=== PATIENT | male | born 1990 | race Caucasian/White ===

== ENCOUNTER 2019-11-01 10:50 | Emergency (ER) | payer OTHER ==
[2019-11-01 11:06] VITALS: BP 132/88
--- NOTE | 2019-11-01 12:11 | XRAY Report ---
Reason: pain Procedure Date: 11/01/2019 Accession Number: [id number] / [id number] Procedure: XR - Forearm RT CPT Code: Final Report FULL RESULT: EXAM: RIGHT FOREARM RADIOGRAPHY, 2 VIEWS EXAM DATE: 11/01/2019 11:30 AM. CLINICAL HISTORY: 29-year-old male with right forearm pain. COMPARISON: None. TECHNIQUE: Frontal and lateral views. FINDINGS: Bones: Normal. No fractures or bone lesions. Joints: Normal. No effusions or subluxations in the visualized wrist or elbow joints. Soft Tissues: Normal. No soft tissue swelling. IMPRESSION: Normal examination. No posttraumatic or other demonstrated cause for pain. RADIA
--- NOTE | 2019-11-01 12:31 | ED Physician Documentation ---
PD HPI UPPER EXT INJURY - Stated complaint Stated Complaint: R ARM INJURY - Chief complaint Chief Complaint: Ext Problem - History obtained from History obtained from: Patient - History of Present Illness Location: Right, Wrist Where injury occurred: Work Timing - onset: Yesterday Timing - duration: Days (2) Timing - details: Abrupt onset (felt onset of some pain in right forearm with normal work activity (hand tools); no direct impact injury. Noted some redness and tenderness, also pain with ROM. Today, having pain with even simple lifting and ROM of the wrist.), Still present Worsened by: Moving, Palpating Review of Systems Constitutional: denies: Fever, Chills Throat: denies: Dental pain / toothache Skin: denies: Rash, Lesions Musculoskeletal: reports: Extremity pain Neurologic: denies: Focal weakness, Numbness PD PAST MEDICAL HISTORY - Past Medical History Past Medical History: No - Past Surgical History Past Surgical History: Yes Ortho: ACL reconstruction - Present Medications Home Medications: Ambulatory Orders Medication Instructions Recorded Confirmed Naproxen 500 mg PO BID #20 tablet 11/01/19 - Allergies Allergies/Adverse Reactions: Allergies Allergy/AdvReac Type Severity Reaction Status Date / Time amoxicillin [From Augmentin] Allergy Hives Verified 11/01/19 10:58 clavulanic acid Allergy Hives Verified 11/01/19 10:58 [From Augmentin] - Social History Does the pt smoke?: No Smoking Status: Never smoker Does the pt drink ETOH?: Yes ETOH Use: Beer Does the pt have substance abuse?: No - Immunizations Immunizations: TDAP current <10years PD ED PE NORMAL - Vitals Vital signs reviewed: Yes - General General: Alert and oriented X 3, No acute distress, Well developed/nourished - Derm Derm: Normal color, Warm and dry - Extremities Extremities: Other (right forearm on radial side lower aspect with area of redness and tenderness of the skin. There is small area about 2 cm of linear firmness c/w phlebitis. Also crepitant feeling in distal forearm with ROM of the wrist but not the thumb, c/w tendonitis. No bony deformity.) Results - Vitals Vitals: Vital Signs - 24 hr 11/01/19 10:54 Temperature 37.1 C Heart Rate 62 Respiratory 17 Rate Blood Pressure 132/88 H O2 Saturation 100 Oxygen O2 Source Room air - Rads (name of study) right forearm Radiology: Prelim report reviewed (no fractures), See rad report PD MEDICAL DECISION MAKING - ED course Complexity details: considered differential (has crepitance with ROM of the wrist, c/w tendonitis. Also with superficial linear tenderness and redness c/w phlebitis. ), d/w patient Departure - Departure Disposition: 01 Home, Self Care Clinical Impression: Forearm tendonitis, Phlebitis of forearm Condition: Stable Record reviewed to determine appropriate education?: Yes Instructions: ED Phlebitis Superficial, Tendonitis and Tenosynovitis Prescriptions: Naproxen 500 mg PO BID #20 tablet Comments: Use the wrist brace to reduce motion of forearm tendons. Take anti- inflammatories regularly for 7-10 days. Add Tylenol as needed for pains. Limit use of the wrist/arm as needed for comfort. Recheck if not improved over the next days to a week. Warm towels a few times daily to the area to help with the phlebitis. Discharge Date/Time: 11/01/19 13:08
[2019-11-01] MEDS ORDERED: IBUPROFEN 800 MG TABLET PO STA (12:44)
[2019-11-01] MEDS ORDERED: CHERRY SYRUP 10 ML UDC PO ONE (12:44)
[2019-11-01] MEDS ORDERED: DEXAMETHASONE 10 MG/ML VIAL PO STA (12:44)
== END 2019-11-01 13:08 | disposition home or self-care (01) ==
LOC: ED 10:50
DX: M77.9 Enthesopathy, unspecified (principal); I80.8 Phlebitis and thrombophlebitis of other sites
CPT/HCPCS: 1040M; 73090; 99283; A9270

== ENCOUNTER 2019-11-10 16:37 | Emergency (ER) | payer OTHER ==
--- NOTE | 2019-11-10 17:25 | ED Physician Documentation ---
PD HPI UPPER EXT INJURY - Stated complaint Stated Complaint: LT HAND VS SAW - Chief complaint Chief Complaint: Laceration - History obtained from History obtained from: Patient - History of Present Illness Location: Left, Hand, Finger (thumb tip) Type of injury: Laceration (He was using a skill saw to cut up some logs and had a kickback of it in the blade caught the side of the tip of the thumb as it kicked back and cut into the thenar webspace between the thumb and index finger. It bled briskly initially and he put direct pressure. He denies numbness or weakness.) Where injury occurred: Work Timing - onset: Today Timing - details: Abrupt onset Worsened by: Palpating. No: Moving Associated symptoms: No: Weakness, Numbness Similar symptoms before: Has not had sx before Recently seen: Emergency Dept (Recently seen for right forearm tendinitis which has improved completely to normal function) Review of Systems Skin: reports: Laceration (s) Neurologic: denies: Focal weakness, Numbness, Near syncope PD PAST MEDICAL HISTORY - Past Medical History Past Medical History: No - Past Surgical History Past Surgical History: Yes Ortho: ACL reconstruction - Present Medications Home Medications: Ambulatory Orders Medication Instructions Recorded Confirmed Naproxen 500 mg PO BID #20 tablet 11/01/19 Hydrocodone/Acetaminophen 1 each PO TID #14 tablet 11/10/19 [Hydrocodon-Acetaminophen 5-325] - Allergies Allergies/Adverse Reactions: Allergies Allergy/AdvReac Type Severity Reaction Status Date / Time amoxicillin [From Augmentin] Allergy Hives Verified 11/10/19 16:53 clavulanic acid Allergy Hives Verified 11/10/19 16:53 [From Augmentin] - Social History Does the pt smoke?: No Smoking Status: Never smoker Does the pt drink ETOH?: Yes Does the pt have substance abuse?: No - Immunizations Immunizations: TDAP current <10years PD ED PE NORMAL - Vitals Vital signs reviewed: Yes - General General: Alert and oriented X 3, No acute distress, Well developed/nourished - Derm Derm: Normal color, Warm and dry - Extremities Extremities: Other (The left thumb tip shows an intact nailbed and nail with some 3 to 4 mm sized partial-thickness avulsions to the radial side and proximal portion of the bed. There are no foreign bodies noted. There is no bleeding and it appears clean. The palmar thenar web space of the left hand shows a 3 cm laceration which extends to the fatty tissue. The edges are slightly irregular. There is no foreign body noted. There is minimal bleeding. There is no involvement of deep structures. Motor exam and sensory of the thumb and index finger are normal.) - Neuro Neuro: Alert and oriented X 3, No motor deficit, No sensory deficit, Normal speech Results - Vitals Vitals: Vital Signs - 24 hr 11/10/19 11/10/19 16:46 18:31 Temperature 36.8 C 36.7 C Heart Rate 53 L 75 Respiratory 18 18 Rate Blood Pressure 136/99 H 140/70 H O2 Saturation 65 L 97 Oxygen O2 Source Room air Procedures - Laceration (location) left thenar hand Length in cm: 3 Wound type: Linear, Into subcut fat, Clean. No: Into muscle Neurovascular status: Sensory intact, Motor intact, Vascular intact Tendon involvement: No: Tendon Injury Anesthesia: Lidocaine 1% with epi Wound Preparation: Wound explored, To the base, Wound edges modified. No: FB identified Skin layer closure: Nylon, Running, Size #-0 - enter number (4) Other: No complications, Neurovascular intact, Dressing applied, Tetanus booster given Complexity: Simple PD MEDICAL DECISION MAKING - ED course Complexity details: considered differential (The thumb lacerations are more partial-thickness small avulsions and no sutures are needed. No foreign bodies. His injury around the nailbed but no involvement of the nailbed itself or the nail. The thenar laceration extends into the fatty tissue but no deep structures. There are no foreign bodies noted. It is sutured with good closure.), d/w patient Departure - Departure Disposition: 01 Home, Self Care Clinical Impression: Hand laceration Qualifiers: Encounter type: initial encounter Foreign body presence: without foreign body Laterality: left Qualified Code(s): S61.412A - Laceration without foreign body of left hand, initial encounter Thumb laceration Qualifiers: Encounter type: initial encounter Damage to nail status: with damage Foreign body presence: without foreign body Laterality: left Qualified Code(s): S61.112A - Laceration without foreign body of left thumb with damage to nail, initial encounter Condition: Stable Record reviewed to determine appropriate education?: Yes Instructions: ED Laceration Hand Prescriptions: Hydrocodone/Acetaminophen [Hydrocodon-Acetaminophen 5-325] 1 each PO TID #14 tablet Comments: Ibuprofen or naproxen 2-3 times a day regularly for the next several days. Add Tylenol every 4-6 hours if needed for pains. It is okay to wash and shower. Clean off the wound twice a day with soap and water, or peroxide and water. Apply some antibiotic ointment to it to keep it moist. Also to watch for signs of infection such as purulence, redness or increasing pain. Return to your primary care or the ER at the specified time for suture removal. Suture removal 8 to 10 days. Activity as tolerated with heavy use of the hand until the stitches are out. Keep the thumb bandaged to protect it during the day when working with it. He can have it uncovered part of the time. Discharge Date/Time: 11/10/19 18:32
[2019-11-10] MEDS ORDERED: IBUPROFEN 800 MG TABLET PO STA (17:52)
[2019-11-10] MEDS ORDERED: TETANUS/DIPHTHERIA/PERTUSSIS 0.5 ML SYRINGE IM ONE (17:52)
[2019-11-10] MEDS ORDERED: BACITRACIN ZINC OINT 1 PACKET TOP STA (18:14)
[2019-11-10] MEDS ORDERED: HYDROcod/ACETAM 5/325 MG TABLET PO STA (18:14)
[2019-11-10 18:32] VITALS: BP 140/70
== END 2019-11-10 18:32 | disposition home or self-care (01) ==
LOC: ED 16:37
DX: S61.412A Laceration without foreign body of left hand, initial encounter (principal); S61.012A Laceration without foreign body of left thumb without damage to nail, initial encounter; W31.2XXA Contact with powered woodworking and forming machines, initial encounter; Y93.89 Activity, other specified; Y99.0 Civilian activity done for income or pay; Z23 Encounter for immunization
CPT/HCPCS: 12002; 90471; 90715; 99283; A9270; 1040M

== ENCOUNTER 2022-12-26 09:17 | Outpatient (CLI) | payer OTHER ==
[2022-12-26 18:57] LABS: BASOPHILS # (AUTO) 0.1 10^3/uL (0.0-0.1); EOSINOPHILS # (AUTO) 0.1 10^3/uL (0.0-0.7); HCT - HEMATOCRIT 47.9 % (42.0-52.0); HGB - HEMOGLOBIN 16.2 g/dL (14.0-18.0); LYMPHOCYTES # (AUTO) 1.8 10^3/uL (1.5-3.5); LYMPHOCYTES % (AUTO) 34.2 %; MEAN CORPUSCULAR HEMOGLOBIN 29.3 pg (27.0-31.0); MEAN CORPUSCULAR HGB CONC 33.8 g/dL (32.0-36.0); MEAN CORPUSCULAR VOLUME 86.8 fL (80.0-94.0); MEAN PLATELET VOLUME 10.6 fL (7.4-11.4); MONOCYTES # (AUTO) 0.4 10^3/uL (0.0-1.0); MONOCYTES % (AUTO) 7.5 %; NEUTROPHILS # (AUTO) 2.9 10^3/uL (1.5-6.6); NEUTROPHILS % (AUTO) 56.1 %; PLT - PLATELET COUNT 182 10^3/uL (130-450); RED BLOOD COUNT 5.52 10^6/uL (4.70-6.10); WHITE BLOOD COUNT 5.2 x10^3/uL (4.8-10.8)
[2022-12-26 19:17] LABS: ALBUMIN 4.7 g/dL (3.2-5.5); ALBUMIN/GLOBULIN RATIO 1.7 (1.0-2.2); BILIRUBIN,TOTAL 0.5 mg/dL (0.2-1.0); CALCIUM 9.1 mg/dL (8.5-10.3); CREATININE 1.1 mg/dL (0.6-1.2); POTASSIUM 4.5 mmol/L (3.5-5.0); TOTAL PROTEIN 7.5 g/dL (6.7-8.2)
[2022-12-26 19:32] LABS: THYROID STIMULATING HORMONE 1.66 uIU/mL (0.34-5.60)
[2022-12-26 19:34] LABS: FREE T4 (FREE THYROXINE) 0.84 ng/dL (0.58-1.64)
== END 2022-12-26 09:18 | disposition home or self-care (01) ==
LOC: LAB.N 09:17
PROVIDERS: ATTEND Physician Assistant
DX: R53.83 Other fatigue (principal); R63.5 Abnormal weight gain
CPT/HCPCS: 36415; 80053; 84403; 84439; 84443; 85025

== ENCOUNTER 2023-01-02 09:26 | Outpatient (CLI) | payer OTHER ==
[2023-01-06 13:10] LABS: FREE TESTOSTERONE(DIRECT) 21.4 pg/mL (8.7-25.1)
== END 2023-01-02 09:27 | disposition home or self-care (01) ==
LOC: LAB.N 09:26
PROVIDERS: ATTEND Family Medicine
DX: R68.82 Decreased libido (principal)
CPT/HCPCS: 36415; 84402; 84403

== ENCOUNTER 2023-07-23 15:23 | Outpatient (CLI) | payer OTHER ==
--- NOTE | 2023-07-23 16:27 | Sleep Patient Instructions ---
Sleep Center Visit Summary - Patient Visit Information Reason for Visit: Initial consult for evaluation of sleep disordered breathing and other sleep issues. - Patient Instructions Instructions Attached: Sleep Study Home Monitor Additional Instructions: You will be completing a sleep study, either an in-lab polysomnography (PSG) or home sleep study (HST). You will follow-up in the sleep care office after the sleep study is completed to hear the results and talk about therapy, if needed. You will be called by our office staff to schedule this appointment, but you may contact us with any questions. - Clinic Information Contact: [facility] [address] [place] [address] [email or web address] T: [phone]
--- NOTE | 2023-07-23 16:32 | SLEEP CARE CONSULTATION ---
Information from patient questionnaire entered by Lupis Thomas. I have reviewed and concur with the information entered by Lupis Thomas. This document represents the service I personally performed and the decisions made by me, Holly Yan ARNP. History of Present Illness Service Date and Time: 07/23/2023 1523 Reason for Visit: New patient Chief Complaint: reports: Unrefreshed sleep, Snoring, Excessive daytime sleepiness, Observed pauses in breathing, Fatigue Date of Onset: FATIGUE 3-5YRS, SNORING AND PAUSES IN BREATHING LONG I CAN REMEMBER Usual bedtime: 10-1130PM Time it takes to fall asleep: 10-15MIN Snores at night: Yes Observed to quit breathing while asleep: Yes Sleeps alone due to snoring: No Number of times waking at night: 0-2 Reasons for waking at night: reports: Choking, Snoring, Bathroom, Other (NOISE) Toss, Turn, or Twitch while sleeping: Yes Recalls having dreams: Yes Usually gets out of bed at: 6AM; weekends 0900 Feels refreshed in the morning: No Morning headache: No Sleepy or fatigued during the day: Yes Ever fallen asleep while driving: No Takes day naps: No Dreams during day naps: No Prior sleep studies: No Additional HPI information: I had the pleasure of seeing ROMY CAGE today regarding the possibility of him having a sleep disorder. His current complaints are unrefreshed sleep, snoring, excessive daytime sleepiness, observed pauses in breathing and fatigue. 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 His is complaining of snoring, pauses in breathing and "making weird sounds" when sleeping. She is now waking him up to turn over and getting frustrated with the night noise. He does not waking up feeling refreshed and cannot remember the last time he did. He is tired during the day but does not take any naps. 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 Patient is and lives in [place]. Have you smoked in the past 12 months: No Alcohol use: Yes Alcohol amount and frequency: 2-3 BEERS 3 NIGHTS A WEEK Caffeine use: Yes Caffeine amount and frequency: 1-2 QD Family History Family history of sleep disordered breathing: Yes Family Hx Sleep Apnea: Father: Snoring, Grandparent: Snoring, Other: Sleep apnea - Treated (2 maternal uncles) Allergies and Home Medications Known drug allergies: Yes (AUGMENTIN) Drug allergies reviewed: Yes Home medication list reviewed: Yes (no daily medications) Allergy and home medication list: Allergies amoxicillin [From Augmentin] Allergy (Verified 07/22/23 15:05) Hives clavulanic acid [From Augmentin] Allergy (Verified 07/22/23 15:05) Hives Review of Systems Weight gain over past 5 years: 64, intentional for [employer] Cardiovascular: denies: high blood pressure Gastrointestinal: denies: heartburn Neurological: denies: headaches Psychiatric: denies: anxiety, depression Ear/Nose/Throat: reports: nasal congestion, sinus problems, wisdom teeth removed. denies: tonsillectomy Endocrine: reports: sluggishness, too hot or cold Physical Exam Vital signs obtained and entered by: Holly Ronquillo NP Blood Pressure: 140/83 Cuff size: wrist (right) Heart Rate: 71 O2 Saturation: 96 Height: 6 ft 5 in Weight: 311 lb 6.4 oz Body Mass Index: 36.9 BMI Classification: Obese Neck circumference: 17.5 (inches) Nostrils: patent to airflow Mouth and throat: narrow oropharynx Soft palate: long Hard palate: normal Uvula: normal Uvula visualization: 25% Mallampati Class III Tongue: enlarged in size with teeth mendez on lateral edges Tonsils: 2+ Neck: normal w/o lymphadenopathy or thyromegaly Heart: regular rate and rhythm Lungs: clear bilaterally Impression and Plan 1. Suspected Obstructive Sleep Apnea-Hypopnea Syndrome, as suggested by a history of loud and irregular snoring, observed cessation of breath while asleep, gasping or choking in sleep, unrefreshed sleep, and excessive daytime sleepiness. Narrow oropharynx and obesity are common predisposing factors for obstructive sleep apnea-hypopnea syndrome. I recommend proceeding to polysomnography to confirm the diagnosis and to assess severity. If the patient has significant sleep disordered breathing, a manual CPAP titration study will also be performed to find the optimal treatment pressure. I informed the patient of what the sleep studies involve and after some discussion, obtained agreement to proceed. The pathophysiology of obstructive sleep apnea-hypopnea syndrome was discussed with the patient and health risks of cardiovascular and cerebrovascular disease if not treated. Risks of drowsy driving discussed in detail and patient advised to avoid long distance driving and to assembler for puller over machine at the first sign of drowsiness. Patient agreed to plan. * Schedule polysomnography. * Avoid long distance driving or driving when feeling sleepy. * Avoid alcohol, sedative and muscle relaxant around bedtime. * Attempt to lose weight. * Review instructions provided by trained office staff on how to prepare for the sleep study. * Return for follow-up after sleep study completed. Counseling Topics: Weight loss health impact Plan: PSG Visit Type: In Office Time Spent with Patient (minutes): 31 Provider Statement: I spent 100% of the Face to Face Visit with the patient with greater than 50% spent counseling the patient and coordination of care.
[2023-07-23 16:38] VITALS: BP 140/83; O2SAT 96
== END 2023-07-23 15:24 | disposition home or self-care (01) ==
LOC: SC 15:23
PROVIDERS: ATTEND Nurse Practitioner Family
DX: G47.10 Hypersomnia, unspecified (principal); R53.83 Other fatigue; R06.83 Snoring; G47.8 Other sleep disorders; R06.81 Apnea, not elsewhere classified; E66.9 Obesity, unspecified; Z68.36 Body mass index [BMI] 36.0-36.9, adult
CPT/HCPCS: 99203; 99212

== ENCOUNTER 2023-08-04 12:27 | Outpatient (CLI) | payer OTHER | END 2023-08-04 12:28 | disposition home or self-care (01) | LOC: SC 12:27 | PROVIDERS: ATTEND Nurse Practitioner Family | DX: G47.10 Hypersomnia, unspecified (principal); E66.9 Obesity, unspecified; R06.83 Snoring; G47.8 Other sleep disorders; R06.81 Apnea, not elsewhere classified; R09.02 Hypoxemia | CPT/HCPCS: 95806 ==

== ENCOUNTER 2023-08-24 09:45 | Outpatient (CLI) | payer OTHER ==
--- NOTE | 2023-08-24 10:10 | Sleep Patient Instructions ---
Sleep Center Visit Summary - Patient Visit Information Reason for Visit: Sleep study followup - Patient Instructions Additional Instructions: Your sleep study today was negative for significant sleep disordered breathing. However, you did have elevated respiratory episodes when sleeping on your back. You should avoid sleeping on your back to control these respiratory episodes. You were found to have episodes of snoring. There are different ways to control snoring including weight loss, oral devices made by a dentist or surgical options through ENT specialist. You should not use oral devices that do not fit properly because they can affect your bite. You should also check insurance coverage of oral devices for snoring because they may not be cover well. You may obtain a referral to an ENT specialist through your primary provider. Follow-up as needed. - Clinic Information Contact: [facility] [address] [place] [address] [email or web address] T: [phone]
--- NOTE | 2023-08-24 10:13 | SLEEP CARE CONSULTATION ---
Information from patient questionnaire entered by Lupis Thomas. I have reviewed and concur with the information entered by Lupis Thomas. This document represents the service I personally performed and the decisions made by , Holly Yan ARNP. History of Present Illness Service Date and Time: 08/24/2023 0945 Initial [place] Sleepiness Scale score: 5 (07/06/23) Current [place] Sleepiness Scale score: 7 (08/24/23) Additional HPI information: ROMY CAGE returns for follow up and results of the recently performed home sleep study. The patient was informed of the following findings: No significant sleep disordered breathing with an average AHI of 3.2 and laverne oxygen saturation of 88%. I explained the pathophysiology behind obstructive sleep apnea. Patient does not have sleep apnea and was advised how weight gain could increase the risk of developing sleep apnea in the future. I strongly encouraged the patient to lose weight. Patient does not have significant sleep disordered breathing but has elevated AHI in supine position so advised positional therapy. Methods to achieve positional management therapy were discussed; such as, positioning with pillows, wearing a T-shirt with tennis balls sewn into the back or commercially available products. Patient has moderate snoring. Snoring can be reduced by weight loss. Weight loss is best achieved with diet consult. Patient instructed to contact PCP for referral. Snoring can also be treated with an oral appliance from a dentist. Advised to check insurance coverage. In addition, an ENT evaluation can be do to see if other treatment is indicated. Patient counseled not drink alcohol less than 4 hours before bedtime as it can increase snoring and apnea. Patient was cautioned about risks of drowsy driving until sleepiness symptoms resolve. Sleep Study - Results Type of Sleep Study: Home sleep study (COMPLETED 08/04/23) Prior sleep studies: No Polysomnography/Home Sleep Study results: Physician Impression: The quality of the study is good. The length of the study is adequate (> 240 minutes). Please also see the tabulated and graphic data. 1. No significant sleep disordered breathing, with an AHI of 3.2/hr and laverne SaO2 of 88%. During the study, the patient had 5 apneas (5 obstructive, 0 central, 0 mixed) and 22 hypopneas. The longest episode lasted 107.0 seconds. The few respiratory events occurred almost excl usively during supine sleep (supine AHI was 5.0 and non-supine, 1.07). 2. Hypoxemia (ICD-10 R09.02), minimal, with the lowest oxygen saturation of 88 % and 0.3 minutes with SaO2 under 90%. Baseline oxygen saturation was normal (Average oxygen saturation was 94%). Allergies and Home Medications Known drug allergies: Yes (augmentin) Drug allergies reviewed: Yes Home medication list reviewed: Yes (no changes) Allergy and home medication list: Allergies amoxicillin [From Augmentin] Allergy (Verified 08/23/23 08:59) Hives clavulanic acid [From Augmentin] Allergy (Verified 08/23/23 08:59) Hives Review of Systems Review of systems same as previous: Yes (NO CHANGE) Physical Exam Vital signs obtained and entered by: LUPIS Barlow MA Blood Pressure: 143/84 (LEFT ARM) Cuff size: regular Heart Rate: 64 O2 Saturation: 99 Height: 6 ft 5 in Weight: 312 lb 9.6 oz Body Mass Index: 37.0 BMI Classification: Obese Impression and Plan 1. Snoring but no significant sleep disordered breathing. However, he had minimally elevated supine AHI. He should avoid supine sleep. Patient advised that often weight loss will reduce snoring as well as apnea risk. An oral appliance can also be used for snoring. This would require a dental consultation. Patient cautioned not to use other online appliances as can cause bite issues. Patient is advised to check if insurance will cover. An ENT consult can also be helpful to determine if any other treatment is an option. 2. Obesity, unspecified. Currently patients BMI is 37. Obesity increases the risk of apnea, CPAP pressure requirements and overall health risks especially cardiovascular and diabetes. Thus patient is advised to lose weight. * Attempt to lose weight * Avoid alcohol consumption near bedtime * The patient is cautioned about driving until sleepiness is completely resolved. * Return as needed for follow up. Counseling Topics: Sleeping position, Weight loss health impact Follow up with Sleep Care in: as needed Visit Type: In Office Time Spent with Patient (minutes): 20 Provider Statement: I spent 100% of the Face to Face Visit with the patient with greater than 50% spent counseling the patient and coordination of care.
[2023-08-24 10:16] VITALS: BP 143/84; O2SAT 99
== END 2023-08-24 09:46 | disposition home or self-care (01) ==
LOC: SC 09:45
PROVIDERS: ATTEND Nurse Practitioner Family
DX: R06.83 Snoring (principal); E66.9 Obesity, unspecified; Z68.37 Body mass index [BMI] 37.0-37.9, adult
CPT/HCPCS: 99212; 99213